=== PATIENT | female | born 1975 | race Hispanic/Latino ===

== ENCOUNTER 2017-03-25 02:29 | Emergency (ER) | payer OTHER ==
[~2017-03-25] VITALS: Ht 157.5 cm; Wt 84.2 kg
[~2017-03-25 02:29] MED LIST: (None)125 MG PO; ALBUTEROL S2.5 MG/.5 IN; AMOXICILLIN500 MG PO; AUGMENTIN875TAB PO; BACTRIM DS1 TAB PO; CIPRO500 MG PO; CIPROFLOXACN500 MG PO; DEPO-MEDROL80 MG/ML IM; DIFLUCAN150 MG PO; DILAUDID2 MG PO; DITROPAN OR; ESTRADIOL0.5 MG PO; FLEXERIL OR; FLEXERIL PO; FLONASE NASAL50 MCG; FLUARIX QUADRIV1 INJ IM; IMITREX25 MG PO; INDOMETHACIN50 MG PO; KEFLEX500 MG PO; KETOROLAC60 MG/2 ML IJ; LEVAQUIN500 MG PO; LEXAPRO10 MG OR; LORTAB 10 PO; LORTAB 7.57.5 MG PO; MACROBID100 MG OR; MEDDOSEPAK OR; MEDDOSEPAK PO; METRONIDAZOL500 MG PO; MOBIC7.5 MG PO; NAPROSYN375 MG PO; NAPROSYN500 MG PO; NEURONTIN300 MG PO; NITROFURANTN100 MG PO; NO; ONDANSETRON4 MG PO; OXYCOD/APAP1 TA3 PO; PERCOCET 5/325M1 TAB PO; PHENERGAN25 MG/ML IM; PREDNISONE20 MG PO; PREMARIN0.625 MG; PREMARIN1.25 MG; PREVPAC PO; PRILOSEC20 MG/CAP PO; PROAIR HFA IN; PROGESTERONE100 MG; PROVENTIL HFA INH; PROVENTIL0.083 % IN; PYRIDIUM200 MG PO; SILVADENE1 % TOP; TOPAMAX50 MG PO; TRAMADL/APAP PO; TRAMADOL HCL50 MG PO; TYLENOL # 31 TAB PO; ULTRAM50 M1 PO; ULTRAM50 MG OR; URIBEL118 MG OR; VENTOLIN HFA IN; VISTARIL25 MG PO; ZITHROMAX500 MG OR; ZOFRAN ODT4 MG OR; ZOFRAN ODT4 MG PO; ZOFRAN4 MG OR; ZOHYDRO ER10 M1 PO; ZOLOFT50 MG PO; [UNRECOGNIZED DRUG - MIXTURE] PO; [UNRECOGNIZED DRUG - REMARK]
[2017-03-25 03:25] LABS: HEMATOCRIT 37.4 % (37.0-47.0); HEMOGLOBIN 12.4 g/dl (12.0-16.0); IMMATURE GRANULOCYTES 0.3 % (0.0-1.0); MEAN CELL VOLUME 91.4 fL CALC (80.0-100.0); MEAN CORPUSCULAR HGB 30.3 pG CALC (26.0-32.0); MEAN CORPUSCULAR HGB CONC 33.2 g/L CALC (32.0-36.0); NEUT# 3.34 thou/uL (2.00-7.15); RED BLOOD COUNT 4.09 mill/uL (4.20-5.60); RED CELL DISTRI WIDTH 12.8 % (11.5-15.5)
[2017-03-25 03:26] LABS: URINE BILIRUBIN - DIPSTICK NEGATIVE (NEGATIVE); URINE BLOOD DIPSTICK MODERATE (NEGATIVE); URINE CLARITY CLEAR; URINE COLOR YELLOW; URINE GLUCOSE - DIPSTICK NEGATIVE (NEGATIVE); URINE KETONE NEGATIVE (NEGATIVE); URINE LEUK ESTERASE NEGATIVE (NEGATIVE); URINE NITRITE - DIPSTICK NEGATIVE (Negative); URINE PROTEIN - DIPSTICK 30 mg/dL (NEG-TRACE); URINE SPECIFIC GRAVITY >=1.030
[2017-03-25 03:36] LABS: ALBUMIN 4.2 g/dL (3.2-5.0); ALKALINE PHOSPHATASE 120 u/l (38-126); AMYLASE 57 u/l (30-110); ANION GAP 15 (6-22 (CALC)); BILIRUBIN, TOTAL 0.3 mg/dL (0.0-1.4); BUN 18 mg/dL (7-17); BUN/CREATININE RATIO 38 (12-20 (CALC)); CALCIUM 8.9 mg/dL (8.4-10.2); CARBON DIOXIDE 26 mmol/l (22-30); CHLORIDE 105 mmol/l (95-108); CREATININE 0.5 mg/dL (0.5-1.0); GFR > 60 ML/MIN (>=60 (CALC)); GFR FOR AFR.AMER. > 60 ML/MIN (>=60 (CALC)); GLUCOSE 129 mg/dL (65-105); LIPASE 131 u/l (23-300); POTASSIUM 4.2 mmol/l (3.5-5.1); SGOT/AST 118 u/l (14-36); SGPT/ALT 106 u/l (9-52); SODIUM 141 mmol/l (137-146); TOTAL PROTEIN 7.4 g/dL (6.3-8.2); URINE BACTERIA FEW hpf; URINE MUCUS FEW hpf (NONE-FEW); URINE SQUAMOUS EPITHELIAL CELL MODERATE EPI/hpf (0-FEW)
[2017-03-25] MEDS ORDERED: ZOFRAN ODT4 MG PO (04:27)
[2017-03-25 04:59] VITALS: BP 144/86
== END 2017-03-25 05:00 | disposition home or self-care (01) | DRG 392 ==
LOC: ED 02:29
PROVIDERS: Emergency Medicine
DX: R10.2 Pelvic and perineal pain (principal); R11.0 Nausea
CPT/HCPCS: Q9967

== ENCOUNTER 2017-03-31 13:20 | Emergency (ER) | payer OTHER ==
[~2017-03-31] VITALS: Ht 157.5 cm; Wt 81.8 kg
[2017-03-31] MEDS ORDERED: LORTAB 1010 MG PO (13:28)
[2017-03-31] MEDS ORDERED: CIPRO XR500 MG PO (13:29)
[2017-03-31] MEDS ORDERED: PYRIDIUM200 MG PO (13:30)
[2017-03-31 13:55] LABS: URINE BILIRUBIN - DIPSTICK NEGATIVE (NEGATIVE); URINE BLOOD DIPSTICK SMALL (NEGATIVE); URINE CLARITY CLEAR; URINE COLOR YELLOW; URINE GLUCOSE - DIPSTICK NEGATIVE (NEGATIVE); URINE KETONE NEGATIVE (NEGATIVE); URINE LEUK ESTERASE NEGATIVE (NEGATIVE); URINE NITRITE - DIPSTICK NEGATIVE (Negative); URINE PH 7.5 (4.5-8.0); URINE PROTEIN - DIPSTICK TRACE mg/dL (NEG-TRACE); URINE UROBILINOGEN - DIPSTICK 0.2 E.U./dL (0.2)
[2017-03-31 13:59] LABS: HEMATOCRIT 37.2 % (37.0-47.0); HEMOGLOBIN 12.4 g/dl (12.0-16.0); IMMATURE GRANULOCYTES 0.8 % (0.0-1.0); MEAN CELL VOLUME 92.3 fL CALC (80.0-100.0); MEAN CORPUSCULAR HGB 30.8 pG CALC (26.0-32.0); MEAN CORPUSCULAR HGB CONC 33.3 g/L CALC (32.0-36.0); NEUT# 3.39 thou/uL (2.00-7.15); RED BLOOD COUNT 4.03 mill/uL (4.20-5.60); RED CELL DISTRI WIDTH 13.2 % (11.5-15.5)
[2017-03-31 14:03] LABS: URINE RBC 0-2 RBC/hpf (0-5); URINE SQUAMOUS EPITHELIAL CELL FEW EPI/hpf (0-FEW)
[2017-03-31 16:14] LABS: ALBUMIN 4.4 g/dL (3.2-5.0); ALKALINE PHOSPHATASE 88 u/l (38-126); ANION GAP 14 (6-22 (CALC)); BILIRUBIN, TOTAL 0.3 mg/dL (0.0-1.4); BUN 13 mg/dL (7-17); BUN/CREATININE RATIO 30 (12-20 (CALC)); CARBON DIOXIDE 26 mmol/l (22-30); CHLORIDE 102 mmol/l (95-108); CREATININE 0.4 mg/dL (0.5-1.0); GFR > 60 ML/MIN (>=60 (CALC)); GFR FOR AFR.AMER. > 60 ML/MIN (>=60 (CALC)); GLUCOSE 87 mg/dL (65-105); POTASSIUM 4.3 mmol/l (3.5-5.1); SGOT/AST 43 u/l (14-36); SGPT/ALT 62 u/l (9-52); SODIUM 138 mmol/l (137-146); TOTAL PROTEIN 7.7 g/dL (6.3-8.2)
[2017-03-31 16:45] LABS: TSH, 3RD GENERATION 1.04 uIU/mL (0.47 - 4.68)
[2017-03-31] MEDS ORDERED: PERCOCET 5/325M1 TAB PO (18:01)
[2017-03-31] MEDS ORDERED: MACROBID100 MG PO (18:02)
[2017-03-31 18:08] VITALS: BP 90/71
== END 2017-03-31 18:16 | disposition home or self-care (01) | DRG 392 ==
LOC: ED 13:20
PROVIDERS: Emergency Medicine
DX: R10.12 Left upper quadrant pain (principal); R31.9 Hematuria, unspecified; R11.2 Nausea with vomiting, unspecified; R19.7 Diarrhea, unspecified; R30.0 Dysuria; M54.5 Low back pain
CPT/HCPCS: Q9967

== ENCOUNTER 2017-07-18 10:32 | Emergency (ER) | payer OTHER ==
[~2017-07-18] VITALS: Ht 157.5 cm; Wt 78.0 kg
[~2017-07-18 10:32] MED LIST changes: +CIPRO XR500 MG PO; +LORTAB 1010 MG PO; +MACROBID100 MG PO
[2017-07-18] MEDS ORDERED: SW OMEPRAZOLE20 MG PO (10:40)
[2017-07-18] MEDS ORDERED: MOTRIN400 MG PO (10:45)
[2017-07-18] MEDS ORDERED: CYCLOBENZAPR5 MG PO (10:45)
[2017-07-18 10:57] VITALS: BP 137/79
== END 2017-07-18 11:14 | disposition home or self-care (01) | DRG 552 ==
LOC: ED 10:32
DX: M54.2 Cervicalgia (principal); M43.6 Torticollis

== ENCOUNTER 2017-10-12 07:30 | Day surgery (SDC) | payer OTHER ==
[~2017-10-12] VITALS: Ht 157.5 cm; Wt 81.2 kg
[~2017-10-12 07:30] MED LIST changes: +CYCLOBENZAPR5 MG PO; +MOTRIN400 MG PO; +NITROFUR MAC50 M1 PO; +SW OMEPRAZOLE20 MG PO
[2017-10-12] MEDS ORDERED: PYRIDIUM200 MG PO (10:42)
[2017-10-12] MEDS ORDERED: LEVSIN0.125 MG PO (10:42)
[2017-10-12] MEDS ORDERED: PERCOCET 5/325M1 TAB PO (10:42)
[2017-10-12 11:34] VITALS: BP 116/70
== END 2017-10-12 12:00 | disposition home or self-care (01) | DRG 655 ==
LOC: ORM 07:30
PROVIDERS: ATTEND Urology
PROC: 0TBB8ZX Excision of Bladder, Via Natural or Artificial Opening Endoscopic, Diagnostic (ICD-10-PCS; principal; 2017-10-12)
PROC: 0T7B8ZZ Dilation of Bladder, Via Natural or Artificial Opening Endoscopic (ICD-10-PCS; 2017-10-12)
DX: N30.10 Interstitial cystitis (chronic) without hematuria (principal); G89.4 Chronic pain syndrome; R35.0 Frequency of micturition; Z87.440 Personal history of urinary (tract) infections

== ENCOUNTER 2018-09-10 19:20 | Emergency (ER) | payer OTHER ==
[~2018-09-10] VITALS: Ht 157.5 cm; Wt 86.4 kg
[~2018-09-10 19:20] MED LIST changes: +LEVSIN0.125 MG PO
[2018-09-10 20:13] LABS: URINE BILIRUBIN - DIPSTICK NEGATIVE (NEGATIVE); URINE BLOOD DIPSTICK LARGE (NEGATIVE); URINE COLOR YELLOW; URINE GLUCOSE - DIPSTICK NEGATIVE (NEGATIVE); URINE KETONE TRACE mg/dL (NEGATIVE); URINE LEUK ESTERASE NEGATIVE (NEGATIVE); URINE NITRITE - DIPSTICK NEGATIVE (Negative); URINE PH 6.5 (4.5-8.0); URINE PROTEIN - DIPSTICK 100 mg/dL (NEG-TRACE); URINE SPECIFIC GRAVITY 1.025
[2018-09-10 20:18] LABS: URINE CLARITY CLEAR
[2018-09-10 20:20] LABS: IMMATURE GRANULOCYTES 0.5 % (0.0-5.0); MEAN CORPUSCULAR HGB 30.8 pG CALC (26.0-32.0); MEAN CORPUSCULAR HGB CONC 34.2 g/L CALC (32.0-36.0); NEUT# 6.33 thou/uL (2.00-7.15); RED BLOOD COUNT 4.81 mill/uL (4.20-5.60); RED CELL DISTRI WIDTH 12.8 % (11.5-15.5)
[2018-09-10 20:23] LABS: HEMATOCRIT 43.3 % (37.0-47.0); HEMOGLOBIN 14.8 g/dl (12.0-16.0)
--- NOTE | 2018-09-10 20:27 | NUR ---
BREATHING TREATMENT GIVEN EMELY LEYVA. BREATHING TECH. FOR GOOD DEPOSITION TO THE LUNGS.
[2018-09-10 20:34] LABS: URINE RBC TNTC RBC/hpf (0-5)
[2018-09-10 20:35] LABS: URINE SQUAMOUS EPITHELIAL CELL FEW EPI/hpf (0-FEW)
[2018-09-10 20:58] LABS: ANION GAP 13 (6-22 (CALC)); BUN 13 mg/dL (7-17); BUN/CREATININE RATIO 38 (12-20 (CALC)); CARBON DIOXIDE 21 mmol/l (22-30); CHLORIDE 108 mmol/l (95-108); CREATININE 0.3 mg/dL (0.5-1.0); GFR > 60 ML/MIN (>=60 (CALC)); GFR FOR AFR.AMER. > 60 ML/MIN (>=60 (CALC)); SODIUM 138 mmol/l (137-146)
[2018-09-10 21:06] LABS: INFLUENZA A NONE DETECTED (NONE DETECT); INFLUENZA B NONE DETECTED (NONE DETECT)
[2018-09-10] MEDS ORDERED: PREDNISONE10 MG PO (21:11)
[2018-09-10 21:25] VITALS: BP 143/91
== END 2018-09-10 21:26 | disposition home or self-care (01) | DRG 866 ==
LOC: ED 19:20
PROVIDERS: Family Medicine
DX: B34.9 Viral infection, unspecified (principal); N30.10 Interstitial cystitis (chronic) without hematuria; R50.9 Fever, unspecified; R05 Cough; R51 Headache

== ENCOUNTER 2019-08-12 00:37 | Emergency (ER) | payer SELFPAY ==
[~2019-08-12] VITALS: Ht 157.5 cm; Wt 84.5 kg
[~2019-08-12 00:37] MED LIST changes: +PREDNISONE10 MG PO
[2019-08-12 01:40] LABS: URINE BLOOD DIPSTICK MODERATE (NEGATIVE); URINE COLOR YELLOW; URINE GLUCOSE - DIPSTICK NEGATIVE (NEGATIVE); URINE KETONE NEGATIVE (NEGATIVE); URINE LEUK ESTERASE NEGATIVE (NEGATIVE); URINE NITRITE - DIPSTICK NEGATIVE (Negative); URINE PH 5.5 (4.5-8.0); URINE PROTEIN - DIPSTICK 100 mg/dL (NEG-TRACE); URINE SPECIFIC GRAVITY >=1.030; URINE UROBILINOGEN - DIPSTICK 0.2 E.U./dL (0.2)
[2019-08-12 01:41] LABS: URINE BILIRUBIN - DIPSTICK NEGATIVE (NEGATIVE); URINE SQUAMOUS EPITHELIAL CELL FEW EPI/hpf (0-FEW); URINE WBC 0-2 WBC/hpf (0-5)
[2019-08-12] MEDS ORDERED: ELAVIL50 MG PO (02:05)
[2019-08-12 02:06] VITALS: BP 133/73
== END 2019-08-12 02:06 | disposition home or self-care (01) | DRG 690 ==
LOC: ED 00:37
PROVIDERS: Family Medicine
PROC: 0T9B70Z Drainage of Bladder with Drainage Device, Via Natural or Artificial Opening (ICD-10-PCS; principal; 2019-08-12)
DX: N30.10 Interstitial cystitis (chronic) without hematuria (principal)

== ENCOUNTER 2021-11-30 16:04 | Emergency (ER) | payer MEDICARE ==
[~2021-11-30] VITALS: Ht 157.5 cm; Wt 89.0 kg
[~2021-11-30 16:04] MED LIST changes: +ELAVIL50 MG PO
[2021-11-30] MEDS ORDERED: ATIVAN1 MG PO (16:36)
[2021-11-30] MEDS ORDERED: ATENOLOL25 MG PO (16:36)
[2021-11-30] MEDS ORDERED: WELLBUTRIN200 M1 PO (16:36)
[2021-11-30] MEDS ORDERED: TORADOL PO (18:24)
[2021-11-30 19:16] VITALS: BP 180/94
== END 2021-11-30 19:29 | disposition home or self-care (01) ==
LOC: ED 16:04
DX: S93.402A Sprain of unspecified ligament of left ankle, initial encounter (principal); J45.909 Unspecified asthma, uncomplicated; F32.A Depression, unspecified; F41.9 Anxiety disorder, unspecified; M79.7 Fibromyalgia; W01.0XXA Fall on same level from slipping, tripping and stumbling without subsequent striking against object, initial encounter; Y92.512 Supermarket, store or market as the place of occurrence of the external cause

== ENCOUNTER 2022-05-03 01:29 | Observation (INO) | payer MEDICARE ==
[2022-05-03] VITALS (15 sets, daily range): BP systolic 116–146; BP diastolic 68–87
[~2022-05-03] VITALS: Ht 157.5 cm; Wt 88.0 kg
[~2022-05-03 01:29] MED LIST changes: +ATENOLOL25 MG PO; +ATIVAN1 MG PO; +BUPROPION100 MG PO; +TORADOL PO
--- NOTE | 2022-05-03 01:32 | NUR ---
PT AMBULATED TO ROOM 10 WITH STEADY GAIT ACCOMPANIED BY .
--- NOTE | 2022-05-03 02:00 | NUR ---
Reassessment of patient completed. PT CONTINUES TO HAVE PAIN.
[2022-05-03 02:12] LABS: HEMATOCRIT 40.3 % (37.0-47.0); HEMOGLOBIN 13.5 g/dl (12.0-16.0); IMMATURE GRANULOCYTES 0.1 % (0.0-5.0); MEAN CORPUSCULAR HGB 30.1 pG CALC (26.0-32.0); MEAN CORPUSCULAR HGB CONC 33.5 g/dL CAL (32.0-36.0); NEUT# 4.2 thou/uL (2.00-7.15); RED BLOOD COUNT 4.48 mill/uL (4.20-5.60); RED CELL DISTRI WIDTH 12.7 % (11.5-15.5)
[2022-05-03 02:27] LABS: ALBUMIN 4.4 g/dL (3.2-5.0); ALKALINE PHOSPHATASE 91 u/l (38-126); BILIRUBIN, TOTAL 0.4 mg/dL (0.0-1.4); BUN 18 mg/dL (7-17); BUN/CREATININE RATIO 38 (12-20 (CALC)); CHLORIDE 103 mmol/l (95-108); CREATININE 0.5 mg/dL (0.5-1.0); GFR FOR AFR.AMER. > 60 ML/MIN (>=60 (CALC)); GFR OTHER RACES > 60 ML/MIN (>=60 (CALC)); LIPASE 41 u/l (23-300); POTASSIUM 3.5 mmol/l (3.5-5.1); SGOT/AST 28 u/l (14-36); SODIUM 138 mmol/l (137-146); TOTAL PROTEIN 7.8 g/dL (6.3-8.2)
[2022-05-03 02:29] LABS: ANION GAP 12 (6-22 (CALC)); CARBON DIOXIDE 27 mmol/l (22-30)
[2022-05-03 02:30] LABS: ACT PARTIAL THROMBO TIME 25.5 SECONDS (20.0-32.5); D-DIMER 0.17 mg/L (0.19-0.60); PROTHROMBIN TIME 10.4 SECONDS (9.0-12.5)
[2022-05-03 02:39] LABS: MYOGLOBIN 17 ng/mL (0 - 62)
--- NOTE | 2022-05-03 03:00 | NUR ---
Reassessment of patient completed. PT CONTINUES TO HAVE PAIN. MD NOTIFIED.
--- NOTE | 2022-05-03 04:00 | NUR ---
Reassessment of patient completed. No distress noted. PAIN MEDICATION EFFECTIVE.
--- NOTE | 2022-05-03 04:20 | NUR ---
PT ARRIVED TO [facility]2 VIA WHEELCHAIR, NO SIGNS OF DISTRESS NOTED, RESP EVEN AND UNLABORED. PT ALERT AND ORIENTED X3, AMBULATED FROM WHEELCHAIR TO BED, PT STATES PAIN DOWN TO 6/10, VITALS OBTAINED. SKIN INTACT. NOTED TRACE EDEMA TO BLE, TEDS APPLIED. DISCUSSED POC AND LOVENOX, VERBALIZED UNDERSTANDING. TELEMETRY IN PLACE. ADMISSION ASSESSMENT COMPLETED, CALL LIGHT IN REACH,CONTINUE TO MONITOR.
--- NOTE | 2022-05-03 04:30 | NUR ---
PT TRANSFERRED TO MED SURG BED 279. REPORT GIVEN TO NEETU HURD.
[2022-05-03] MEDS ORDERED: LYRICA75 MG PO (07:08)
[2022-05-03] MEDS ORDERED: CYANOCOBAL1000 MCG/M IJ (07:08)
[2022-05-03] MEDS ORDERED: PREDNISONE20 MG (07:08)
[2022-05-03] MEDS ORDERED: HYDROCODONE BIT1 TA7 PO (07:09)
[2022-05-03] MEDS ORDERED: PREMARIN0.625 MG PO (07:10)
[2022-05-03] MEDS ORDERED: VENLAFAXINE HCL75 M1 PO (07:10)
[2022-05-03] MEDS ORDERED: NORVASC5 M1 PO (07:10)
[2022-05-03] MEDS ORDERED: ATORVASTATIN CA10 MG PO (07:10)
[2022-05-03] MEDS ORDERED: PROVENTIL108 MCG/AC IN (07:11)
--- NOTE | 2022-05-03 08:00 | NUR ---
GOT REPORT FROM [employer] INSPECTOR NURSE. PATIENT JUST FINISHED UP HAVING AN EKG. PATIENT DENIES ANY SOB OR CHEST PAIN AT THIS TIME. THIS EKG WAS JUST A SCHEDULED ONE. PATIENT STATES THAT SHE DOES NOT WANT TO EAT AT THIS TIME IT WAS TOO EARLY IN THE AM. NO SXS OF DISTRESS. CALL LIGHT AND BEDSIDE TABLE WITH IN REACH. ADVISED TO CALL IF SHE NEEDED ANYTHING.
[2022-05-03 08:06] LABS: CHOLESTEROL HDL RATIO 2.6 (<4.4 (CALC))
--- NOTE | 2022-05-03 12:00 | NUR ---
PATIENT IS IN BED SLEEPING. NO SXS OF DISTRESS NOTED. CALL LIGHT AND BEDSIDE TABLE WITH IN REACH. FALL PRECAUTIONS IN PLACE.
--- NOTE | 2022-05-03 16:41 | NUR ---
Discharge instructions given. Patient verbalizes understanding of same. Discharged in stable condition via Wheelchair to Home with spouse. All belongings sent with pt.
== END 2022-05-03 16:51 | disposition home or self-care (01) ==
LOC: ED 01:29 → ED-I 03:06 → ED 03:19 → MS2 03:20
PROVIDERS: Family Medicine; ADMIT Hospitalist; ATTEND Hospitalist
DX: R07.9 Chest pain, unspecified (principal); I10 Essential (primary) hypertension; E78.5 Hyperlipidemia, unspecified; K76.0 Fatty (change of) liver, not elsewhere classified; Z20.822 Contact with and (suspected) exposure to COVID-19; Z87.891 Personal history of nicotine dependence
CPT/HCPCS: G0378; J1650

== ENCOUNTER 2022-12-02 10:05 | Emergency (ER) | payer MEDICARE ==
[~2022-12-02] VITALS: Ht 157.5 cm; Wt 95.7 kg
[~2022-12-02 10:05] MED LIST changes: +ATORVASTATIN CA10 MG PO; +CYANOCOBAL1000 MCG/M IJ; +HYDROCODONE BIT1 TA7 PO; +LYRICA75 MG PO; +NORVASC5 M1 PO; +PREDNISONE20 MG; +PREMARIN0.625 MG PO; +PROVENTIL108 MCG/AC IN; +VENLAFAXINE HCL75 M1 PO
[2022-12-02] MEDS ORDERED: OMNI-PAC300 MG PO (11:38)
[2022-12-02] MEDS ORDERED: DOXYCYCLINE100 MG PO (11:38)
[2022-12-02 12:01] VITALS: BP 134/78
== END 2022-12-02 12:00 | disposition home or self-care (01) ==
LOC: ED 10:05
DX: L03.113 Cellulitis of right upper limb (principal); J45.909 Unspecified asthma, uncomplicated; F41.9 Anxiety disorder, unspecified; F32.A Depression, unspecified; M79.7 Fibromyalgia

== ENCOUNTER 2023-05-22 18:19 | Emergency (ER) | payer MEDICARE ==
[~2023-05-22 18:19] MED LIST changes: +DOXYCYCLINE100 MG PO; +OMNI-PAC300 MG PO
[2023-05-25] MEDS ORDERED: OMEPRAZOLE DR20 MG PO (15:01)
== END 2023-05-22 19:00 | disposition left against medical advice (07) ==
LOC: ED 18:19
DX: Z53.21 Procedure and treatment not carried out due to patient leaving prior to being seen by health care provider (principal)

== ENCOUNTER 2023-05-23 21:17 | Emergency (ER) | payer MEDICARE ==
[~2023-05-23] VITALS: Ht 157.5 cm; Wt 83.0 kg
[2023-05-23] VITALS (11 sets, daily range): BP systolic 129–163; BP diastolic 73–95
[2023-05-23 22:40] LABS: BASO% 0.4 % (0-3); EOS% 6.9 % (0-8); HEMATOCRIT 44.8 % (37.0-47.0); HEMOGLOBIN 14.7 g/dl (12.0-16.0); IMMATURE GRANULOCYTES 0.1 % (0.0-5.0); LYMPH% 35.4 % (15-41); MEAN CELL VOLUME 90.5 fL CALC (80.0-100.0); MEAN CORPUSCULAR HGB 29.7 pG CALC (26.0-32.0); MEAN CORPUSCULAR HGB CONC 32.8 g/dL CAL (32.0-36.0); MONO% 6.3 % (2-13); NEUT# 3.63 thou/uL (2.00-7.15); NEUT% 50.9 % (42-76); RED BLOOD COUNT 4.95 mill/uL (4.20-5.60); RED CELL DISTRI WIDTH 12.3 % (11.5-15.5)
[2023-05-23 23:11] LABS: ALBUMIN 4.3 g/dL (3.2-5.0); ALKALINE PHOSPHATASE 73 u/l (38-126); AMYLASE 90 u/l (30-110); ANION GAP 11 (6-22 (CALC)); BILIRUBIN, TOTAL 0.5 mg/dL (0.02-1.3); BUN 11 mg/dL (7-17); BUN/CREATININE RATIO 15 (12-20 (CALC)); CARBON DIOXIDE 28 mmol/l (22-30); CHLORIDE 103 mmol/l (95-108); CREATININE 0.7 mg/dL (0.5-1.0); GFR FOR AFR.AMER. > 60 ML/MIN (>=60 (CALC)); GFR OTHER RACES > 60 ML/MIN (>=60 (CALC)); LIPASE 34 u/l (23-300); POTASSIUM 3.6 mmol/l (3.5-5.1); SGOT/AST 36 u/l (14-36); SODIUM 138 mmol/l (137-146); TOTAL PROTEIN 7.9 g/dL (6.3-8.2)
[2023-05-24] VITALS: BP 145/81
[2023-05-24] MEDS ORDERED: NAPROXEN500 MG PO (01:58)
[2023-05-24 02:42] VITALS: BP 145/81
[2023-05-25] MEDS ORDERED: OMEPRAZOLE DR20 MG PO (15:01)
== END 2023-05-24 02:55 | disposition home or self-care (01) ==
LOC: ED 21:17
PROVIDERS: Emergency Medicine
DX: R07.89 Other chest pain (principal); J45.909 Unspecified asthma, uncomplicated; F41.9 Anxiety disorder, unspecified; F32.A Depression, unspecified

== ENCOUNTER 2024-04-21 23:47 | Emergency (ER) | payer MEDICARE ==
[~2024-04-21] VITALS: Ht 157.5 cm; Wt 75.0 kg
[~2024-04-21 23:47] MED LIST changes: +ATIVAN1 M1 PO; +BUPROPION HCL150 MG PO; +DIAZEPAM5 MG PR; +LEXAPRO20 MG PO; +NAPROXEN500 MG PO; +OMEPRAZOLE DR20 MG PO; +VOLTAREN1%GEL TOP
[2024-04-22 00:07] VITALS: BP 149/66
[2024-04-22] MEDS ORDERED: ASPIRIN 81 MG/TAB PO ONE (00:10)
[2024-04-22] MEDS ORDERED: KETOROLAC TROMETHAMINE 30 MG/ML SDV IV ONE (00:15)
[2024-04-22] MEDS ORDERED: PROMETHAZINE HCL 25 MG/ML AMP IV ONE (00:15)
[2024-04-22] MEDS ORDERED: SODIUM CHLORIDE 0.9% 1,000 ML IV ONE (00:15)
[2024-04-22 00:16] VITALS: BP 129/72
[2024-04-22 00:26] LABS: BASO% 0.6 % (0-3); EOS% 4.3 % (0-8); HEMATOCRIT 42.3 % (37.0-47.0); HEMOGLOBIN 13.6 g/dl (12.0-16.0); IMMATURE GRANULOCYTES 0.2 % (0.0-5.0); MEAN CELL VOLUME 95.7 fL CALC (80.0-100.0); MEAN CORPUSCULAR HGB 30.8 pG CALC (26.0-32.0); MEAN CORPUSCULAR HGB CONC 32.2 g/dL CAL (32.0-36.0); MONO% 6.7 % (2-13); NEUT# 4.57 thou/uL (2.00-7.15); NEUT% 54.2 % (42-76); RED BLOOD COUNT 4.42 mill/uL (4.20-5.60); RED CELL DISTRI WIDTH 12.9 % (11.5-15.5)
[2024-04-22 00:30] VITALS: BP 152/87
[2024-04-22] MEDS ORDERED: WELLBUTRIN XL300 MG PO (00:37)
[2024-04-22 00:38] LABS: HCG SERUM/URINE (NEG/POS) NEGATIVE (NEGATIVE)
[2024-04-22] MEDS ORDERED: LISINOPRIL5 MG PO (00:39)
[2024-04-22 00:43] LABS: ALBUMIN 4.3 g/dL (3.2-5.0); ALKALINE PHOSPHATASE 83 u/l (38-126); ANION GAP 9 (6-22 (CALC)); BILIRUBIN, TOTAL 0.4 mg/dL (0.02-1.3); BUN 20 mg/dL (7-17); BUN/CREATININE RATIO 42 (12-20 (CALC)); CARBON DIOXIDE 27 mmol/l (22-30); CHLORIDE 106 mmol/l (95-108); CREATININE 0.5 mg/dL (0.5-1.0); ESTIMATED GFR 114 ML/MIN (>=90 (CALC)); POTASSIUM 3.9 mmol/l (3.5-5.1); SGOT/AST 37 u/l (14-36); SODIUM 138 mmol/l (137-146); TOTAL PROTEIN 7.9 g/dL (6.3-8.2)
[2024-04-22] MEDS ORDERED: PREMARIN0.3 MG PO (00:43)
[2024-04-22] MEDS ORDERED: LORAZEPAM0.5 MG PO (00:45)
[2024-04-22 00:46] VITALS: BP 140/80
[2024-04-22 00:48] LABS: ACT PARTIAL THROMBO TIME 26.3 SECONDS (20.0-32.5); INTERNATIONAL NORMALIZED RATIO 1.1 RATIO (0.7-1.3)
[2024-04-22 00:57] LABS: PROTHROMBIN TIME 10.1 SECONDS (9.0-12.5)
[2024-04-22 01:00] VITALS: BP 143/87
[2024-04-22 01:02] LABS: D-DIMER 0.18 mg/L (0.19-0.60)
[2024-04-22] MEDS ORDERED: TORADOL PO (01:10)
[2024-04-22 01:11] VITALS: BP 143/87
== END 2024-04-22 01:18 | disposition home or self-care (01) ==
LOC: ED 23:47
PROVIDERS: Family Medicine
DX: R07.89 Other chest pain (principal); I10 Essential (primary) hypertension; F41.9 Anxiety disorder, unspecified; J45.909 Unspecified asthma, uncomplicated; F32.A Depression, unspecified; E78.5 Hyperlipidemia, unspecified; Z20.822 Contact with and (suspected) exposure to COVID-19

== ENCOUNTER 2024-09-11 14:05 | Emergency (ER) | payer MEDICARE ==
[~2024-09-11] VITALS: Ht 157.5 cm; Wt 86.1 kg
[~2024-09-11 14:05] MED LIST changes: +LISINOPRIL5 MG PO; +LORAZEPAM0.5 MG PO; +PHENAZOPYRIDIN100 M1 PO; +PREMARIN0.3 MG PO; +WELLBUTRIN XL300 MG PO
[2024-09-11 15:21] LABS: URINE BLOOD DIPSTICK Trace-lysed (NEGATIVE); URINE GLUCOSE - DIPSTICK 100 mg/dL (NEGATIVE); URINE KETONE Trace mg/dL (NEGATIVE); URINE PROTEIN - DIPSTICK 30 mg/dL (NEG-TRACE)
[2024-09-11 15:22] LABS: URINE COLOR Orange; URINE LEUK ESTERASE Large (NEGATIVE); URINE NITRITE - DIPSTICK Positive (Negative)
[2024-09-11] MEDS ORDERED: PHENAZOPYRIDINE HCL 100 MG/TAB PO ONE (15:25)
[2024-09-11] MEDS ORDERED: NITROFURANTOIN 100 MG/CAP PO ONE (15:25)
[2024-09-11] MEDS ORDERED: PYRIDIUM200 MG PO (15:27)
[2024-09-11] MEDS ORDERED: MACROBID100 M1 PO (15:27)
[2024-09-11 15:35] LABS: URINE BACTERIA RARE hpf; URINE WBC 0-2 WBC/hpf (0-5)
[2024-09-11] MEDS ORDERED: LIDOcaine HCl 1% (Local Anesth.) 20 ML VIAL IM STA (16:01)
[2024-09-11] MEDS ORDERED: cefTRIAXone SODIUM 1 GM/VIAL SDV IM ONE (16:05)
[2024-09-13] MEDS ORDERED: ZOFRAN4 MG/TAB PO (09:35)
[2024-09-13] MEDS ORDERED: BACTRIM DS1 TAB PO (09:35)
== END 2024-09-11 16:08 | disposition home or self-care (01) ==
LOC: ED 14:05
PROVIDERS: Nurse Practitioner
DX: N39.0 Urinary tract infection, site not specified (principal); B96.20 Unspecified Escherichia coli [E. coli] as the cause of diseases classified elsewhere; I10 Essential (primary) hypertension; E78.5 Hyperlipidemia, unspecified; J45.909 Unspecified asthma, uncomplicated; F41.9 Anxiety disorder, unspecified; F32.A Depression, unspecified; Z87.440 Personal history of urinary (tract) infections

== ENCOUNTER 2024-10-18 19:46 | Emergency (ER) | payer MEDICARE ==
[~2024-10-18] VITALS: Ht 157.5 cm; Wt 83.0 kg
[~2024-10-18 19:46] MED LIST changes: +MACROBID100 M1 PO; +ZOFRAN4 MG/TAB PO
[2024-10-18 21:45] LABS: URINE BILIRUBIN - DIPSTICK Negative (NEGATIVE); URINE BLOOD DIPSTICK Moderate (NEGATIVE); URINE GLUCOSE - DIPSTICK Negative (NEGATIVE); URINE KETONE Negative (NEGATIVE); URINE LEUK ESTERASE Negative (NEGATIVE); URINE NITRITE - DIPSTICK Negative (Negative); URINE PH 6.5 (4.5-8.0); URINE PROTEIN - DIPSTICK Negative (NEG-TRACE); URINE SPECIFIC GRAVITY 1.025; URINE UROBILINOGEN - DIPSTICK 0.2 E.U./dL (0.2)
[2024-10-18 21:46] LABS: URINE COLOR Yellow
[2024-10-18 21:52] LABS: URINE BACTERIA FEW hpf; URINE SQUAMOUS EPITHELIAL CELL FEW EPI/hpf (0-FEW)
[2024-10-18 21:53] LABS: URINE TRANSITIONAL EPI. CELLS RARE hpf
[2024-10-18 21:54] LABS: URINE WBC 0-2 WBC/hpf (0-5)
[2024-10-18] MEDS ORDERED: VRAYLAR1.5 MG (22:01)
[2024-10-18] MEDS ORDERED: HYDROCO/APAP1 T10 PO (23:45)
[2024-10-18] MEDS ORDERED: HYDROcodone 5 MG/Acetaminophen 325 MG/COMBO PO ONE (23:45)
[2024-10-19 01:09] VITALS: BP 126/74
== END 2024-10-19 01:09 | disposition home or self-care (01) ==
LOC: ED 19:46
PROVIDERS: Nurse Practitioner
DX: N30.10 Interstitial cystitis (chronic) without hematuria (principal); I10 Essential (primary) hypertension; F41.9 Anxiety disorder, unspecified; F32.A Depression, unspecified; E78.5 Hyperlipidemia, unspecified; J45.909 Unspecified asthma, uncomplicated

== ENCOUNTER 2024-10-27 06:09 | Day surgery (SDC) | payer MEDICARE ==
[~2024-10-27] VITALS: Ht 157.5 cm; Wt 83.5 kg
[~2024-10-27 06:09] MED LIST changes: +CLONAZEPAM0.5 M1 PO; +DEPAKOTE250 MG PO; +DIAZEPAM5 MG PO; +ELAVIL25 M1 PO; +HYDROCHLOROT25 MG PO; +HYDROCO/APAP1 T10 PO; +OMEPRAZOLE DR40 MG PO; +POTASSIUM CITR15 MEQ PO; +REGLAN10 MG PO; +TIZANIDINE HCL2 MG PO; +VENTOLIN HFA108 MCG IN; +VRAYLAR1.5 MG PO
[2024-10-27] MEDS ORDERED: FAMOTIDINE 10MG/ML 2ML SDV IV ONE (06:39)
[2024-10-27] MEDS ORDERED: ceFAZolin Sodium 2 GM/VIAL SDV ONE (06:40)
[2024-10-27] MEDS ORDERED: LACTATED RINGER'S 1,000 ML IV ONE ×2 (06:40→08:24)
[2024-10-27] MEDS ORDERED: SODIUM CHLORIDE 0.9% 100 ML IV ONE (06:40)
[2024-10-27] MEDS ORDERED: ONABOTULINUMTOXINA 100 UNIT ONE (06:42)
[2024-10-27] MEDS ORDERED: HEPARIN SODIUM FLUSH (PORCINE) 10 UNIT/ML 5ML SYR IV ONE (06:43)
[2024-10-27] MEDS ORDERED: SODIUM CHLORIDE 20 ML/VIAL SDV ONE ×2 (06:45→06:54)
[2024-10-27] MEDS ORDERED: GENTAMICIN SULFATE 320 MG in DEXTROSE 5% 100 ML IV ONE (07:15)
[2024-10-27] MEDS ORDERED: ACETAMINOPHEN 100 ML IV ONE (08:24)
[2024-10-27] MEDS ORDERED: KETOROLAC TROMETHAMINE 30 MG/ML SDV ONE (08:24)
[2024-10-27] MEDS ORDERED: PHENAZOPYRIDINE HCL 100 MG/TAB ONE (08:25)
[2024-10-27] MEDS ORDERED: STERILE WATER FOR IRRIGATION 1,000 ML BTL IR ONE (08:25)
[2024-10-27] MEDS ORDERED: HYDROmorphone HCL 2 MG/AMP ONE (08:40)
[2024-10-27] MEDS ORDERED: PYRIDIUM200 MG PO (09:04)
[2024-10-27 09:30] VITALS: BP 117/72
[2024-10-27] MEDS ORDERED: GLYCOPYRROLATE 0.2 MG/ML IV ONE (12:54)
[2024-10-27] MEDS ORDERED: PROPOFOL 200 MG/20 ML VIAL IV ONE (12:54)
[2024-10-27] MEDS ORDERED: LIDOCAINE HCL 2% 2ML SDV IV ONE (12:54)
[2024-10-27] MEDS ORDERED: MIDAZOLAM HCL 2 MG/2 ML VIAL IV ONE (12:54)
== END 2024-10-27 09:44 | disposition home or self-care (01) ==
LOC: ORM 06:09
PROVIDERS: ATTEND Urology
PROC: 0TBB8ZX Excision of Bladder, Via Natural or Artificial Opening Endoscopic, Diagnostic (ICD-10-PCS; principal; 2024-10-27)
PROC: 3E0K8GC Introduction of Other Therapeutic Substance into Genitourinary Tract, Via Natural or Artificial Opening Endoscopic (ICD-10-PCS; 2024-10-27)
PROC: 0T7B8ZZ Dilation of Bladder, Via Natural or Artificial Opening Endoscopic (ICD-10-PCS; 2024-10-27)
DX: N30.10 Interstitial cystitis (chronic) without hematuria (principal); N39.41 Urge incontinence; G89.4 Chronic pain syndrome; I10 Essential (primary) hypertension; J45.909 Unspecified asthma, uncomplicated; E78.2 Mixed hyperlipidemia; K21.9 Gastro-esophageal reflux disease without esophagitis; F41.9 Anxiety disorder, unspecified; F32.A Depression, unspecified; Z87.440 Personal history of urinary (tract) infections
CPT/HCPCS: J0131; J0585; J0690; J1171; J1580; J1596